=== PATIENT | male | born 1995 ===

== ENCOUNTER 2016-07-15 15:27 | Emergency (ER) | payer BC ==
[2016-07-15 15:52] VITALS: BP 120/56
--- NOTE | 2016-07-15 16:12 | UC ---
Skin Complaint HPI - HPI Summary HPI Summary: Painful blistery rash on forehead. 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 Was in [place] last week with lots of sun exposure. Denies other recent illness, feeling well otherwise. - History of Current Complaint Chief Complaint: UCRash Time Seen by Provider: 07/15/16 15:41 Stated Complaint: SKIN COMPLAINT Hx Obtained From: Patient Onset/Duration: Gradual Onset, Lasting Days Timing: Constant Onset Severity: Mild Current Severity: Mild Location: Discrete Character: Pain, Raised Aggravating: Nothing Alleviating: Nothing Associated Signs & Symptoms: Positive: Rash - Allergy/Home Medications Allergies/Adverse Reactions: Allergies Allergy/AdvReac Type Severity Reaction Status Date / Time No Known Allergies Allergy Verified 07/15/16 15:41 Home Medications: Home Medications Amphetamine/Dextroamph ER(NF) [Adderal XR (NF)] 20 mg PO BID 07/15/16 [History Confirmed 07/15/16] Review of Systems Constitutional: Negative Skin: Rash Eyes: Negative ENT: Negative Respiratory: Negative Cardiovascular: Negative Gastrointestinal: Negative Genitourinary: Negative Motor: Negative Neurovascular: Negative Musculoskeletal: Negative Neurological: Negative Psychological: Negative All Other Systems Reviewed And Are Negative: Yes PMH/Surg Hx/FS Hx/Imm Hx Previously Healthy: Yes - Surgical History Surgical History: Yes Surgery Procedure, Year, and Place: LEFT KNEE AND LEFT KNEE SURGERY - Family History Known Family History: Positive: Hypertension - Social History Occupation: Student Alcohol Use: Occasionally Substance Use Type: None Smoking Status (MU): Never Smoked Tobacco Physical Exam Triage Information Reviewed: Yes Appearance: Well-Appearing, No Pain Distress, Well-Nourished Vital Signs: Initial Vital Signs Temp 98.2 F 07/15/16 15:42 Pulse 91 07/15/16 15:42 Resp 16 07/15/16 15:42 BP 120/56 07/15/16 15:42 Pulse Ox 98 07/15/16 15:42 Vital Signs Reviewed: Yes Eye Exam: Normal Eyes: Positive: Conjunctiva Clear ENT Exam: Normal ENT: Positive: Normal ENT inspection, Hearing grossly normal, Pharynx normal, TMs normal Dental Exam: Normal Neck exam: Normal Neck: Positive: Supple, Nontender, No Lymphadenopathy Respiratory Exam: Normal Respiratory: Positive: Chest non-tender, Lungs clear, Normal breath sounds, No respiratory distress, No accessory muscle use Cardiovascular Exam: Normal Cardiovascular: Positive: RRR, No Murmur Musculoskeletal Exam: Normal Neurological Exam: Normal Psychological Exam: Normal Skin Exam: Other - grouped vesicles on erythematous base in middle of forhead, approx 10cm x 7cm. Course/Dx - Diagnoses Provider Diagnoses: HSV infection on skin on forehead Discharge - Discharge Plan Condition: Stable Disposition: HOME Prescriptions: ValACYclovir (*) [Valtrex 1 GM(*)] 1 gm PO BID #10 tab Patient Education Materials: Oral Herpes Simplex Virus Infections (ED) Additional Instructions: Call or return if you have increasing pain, spreading redness, or suspect a problem. I recommend 400-600mg ibuprofen three times per day.
== END 2016-07-15 16:13 | disposition home or self-care (01) ==
LOC: UCCORT 15:27
DX: B00.89 Other herpesviral infection (principal)
CPT/HCPCS: 99202; G0463